=== PATIENT | male | born 1985 | race American Indian/Alaskan Native ===

== ENCOUNTER 2018-05-13 17:33 | Emergency (ER) | payer SELFPAY ==
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
[2018-05-13] MEDS ORDERED: SODIUM BICARBONATE IV ONE (23:00)
[2018-05-13] MEDS ORDERED: ADRENALIN ONE (23:00)
== END 2018-05-13 19:41 ==
LOC: ED 17:33
DX: S01.90XA Unspecified open wound of unspecified part of head, initial encounter (principal); I46.9 Cardiac arrest, cause unspecified; J96.00 Acute respiratory failure, unspecified whether with hypoxia or hypercapnia; W34.010A Accidental discharge of airgun, initial encounter; Y93.9 Activity, unspecified; Y99.8 Other external cause status; Y92.9 Unspecified place or not applicable
CPT/HCPCS: 31500; 92950; 99291; J0171